=== PATIENT | female | born 1975 | race Two or more races ===

== ENCOUNTER 2016-07-14 03:14 | Emergency (ER) | payer MEDICAID ==
[~2016-07-14] VITALS: Ht 170.2 cm; Wt 77.1 kg
[2016-07-14 07:11] VITALS: BP 98/55
== END 2016-07-14 07:22 | disposition home or self-care (01) ==
LOC: ER 03:14
DX: S01.112A Laceration without foreign body of left eyelid and periocular area, initial encounter (principal); W01.0XXA Fall on same level from slipping, tripping and stumbling without subsequent striking against object, initial encounter; Y93.89 Activity, other specified; Y99.8 Other external cause status; Y92.89 Other specified places as the place of occurrence of the external cause
CPT/HCPCS: 70450